=== PATIENT | male | born 2000 | race African-American/Black ===

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

== ENCOUNTER 2019-02-24 22:04 | Emergency (ER) | payer SELFPAY ==
[~2019-02-24] VITALS: Ht 172.7 cm; Wt 56.7 kg
[~2019-02-24 22:04] MED LIST: DOCO2CRE TP
[2019-02-24] MEDS ORDERED: ONDANSETRON PF 4 MG/2 ML VIAL. IVP ONE (22:45)
[2019-02-24] MEDS ORDERED: MORPHINE SULFATE 4 MG/ML VIAL. IV ONE (22:45)
[2019-02-24] MEDS ORDERED: IV NORMAL SALINE 1000ML BAG 1,000 ML IV ONE (22:45)
[2019-02-24 23:12] LABS: CALCIUM 9.4 mg/dL (8.5-10.1); CREATININE 0.9 mg/dL (0.7-1.3); GFR 131.5; POTASSIUM 3.8 mmol/L (3.5-5.1)
[2019-02-24 23:18] LABS: ALBUMIN 4.1 g/dL (3.4-5.0); ALBUMIN/GLOBULIN RATIO 0.9 (1.0-1.7); TOTAL BILIRUBIN 0.3 mg/dL (0.2-1.0); TOTAL PROTEIN 8.5 g/dL (6.4-8.2)
[2019-02-24] MEDS ORDERED: CONTRAST GIVEN. MC PRN (23:45)
[2019-02-24] MEDS ORDERED: IOHEXOL 300 MG/ML 100ML VIAL. IV ONE (23:45)
--- NOTE | 2019-02-24 23:52 | RAD ---
EXAM: CT ABDOMEN/PELVIS WITH CONTRAST. HISTORY: Abdominal pain. TECHNIQUE: Computed tomography of the abdomen and pelvis was performed after the intravenous administration of iodinated contrast. COMPARISON: None. FINDINGS: Lung windows through the visualized portions of the bases reveal bronchial wall thickening and mild bronchiectasis medially in the left lower lobe. There is associated segmental air trapping. No abnormal feeding artery is occluded in this [id number] to indicate a sequestration. Bone windows reveal no suspicious lesions. The liver, gallbladder, spleen, adrenal glands, kidneys and pancreas are unremarkable. There are no pathologically enlarged lymph nodes. The left colon is decompressed but there is suggestion of wall thickening distally. There is no small bowel obstruction. There is no evidence of appendicitis. IMPRESSION: 1. The distal colon is decompressed but there is suggestion of wall thickening. Correlate to exclude distal colitis. 2. Bronchiectasis and wall thickening medially in the left lower lobe. No clear sequestration is identified in this [id number]. This may sequela of multiple prior infections. Correlate for a known diagnosis. *One or more of the following individualized dose reduction techniques were utilized for this examination: 1. Automated exposure control. 2. Adjustment of the mA and/or kV according to patient size. 3. Use of iterative reconstruction technique. Electronically signed by: Christiano Slater MD (02/24/2019 11:49 PM) [id number]
[2019-02-25 00:52] LABS: BASO % 0 % (0-3); EOS % 0 % (0-3); HEMATOCRIT 43.8 % (39.0-53.0); LYMPH # 0.8 x10^3/uL (1.0-4.8); LYMPH % 11 % (24-48); MEAN CORPUSCULAR HEMOGLOBIN 31 pg (25-35); MEAN CORPUSCULAR HGB CONC 34 g/dL (31-37); MEAN CORPUSCULAR VOLUME 91 fL (79-100); MONO # 0.5 x10^3/uL (0.0-1.1); MONO % 6 % (0-9); NEUT # 6.3 x10^3/uL (1.8-7.7); NEUT % 83 % (31-73); PLATELET COUNT 193 x10^3/uL (140-400); RED BLOOD COUNT 4.81 x10^6/uL (4.30-5.70); WHITE BLOOD COUNT 7.6 x10^3/uL (4.0-11.0)
[2019-02-25] MEDS ORDERED: CIPR500T94 PO (01:09)
[2019-02-25] MEDS ORDERED: ONDA4TAB7 PO (01:09)
[2019-02-25] MEDS ORDERED: METR500T PO (01:09)
[2019-02-25] MEDS ORDERED: DICY20TA3 PO (01:09)
--- NOTE | 2019-02-25 01:09 | PHYS DOC ---
Past Medical History Past Medical History: No Pertinent History (CHRISTINA BAILON APRN) Past Surgical History: No Surgical History (CHRISTINA BAILON APRN) Alcohol Use: Occasionally Drug Use: None (CHRISTINA BAILON APRN) Attending Signature I have participated in the care of this patient and I have reviewed and agree with all pertinent clinical information above including history, exam, and recommendations. (MIKAL BABB MD) Adult General Chief Complaint Chief Complaint: ABDOMINAL PAIN HPI HPI Patient is a 18 year old male with no significant medical history who presents to the ED today complaining of generalized abdominal pain rated at 8 out of 10 described as sharp and intermittent that has been going on for 3 days with nausea vomiting and diarrhea. Denies any hematemesis or melena. Denies any escalating or relieving factors. (CHRISTINA BAILON APRN) Review of Systems Review of Systems Constitutional: Denies fever or chills [] Eyes: Denies change in visual acuity, redness, or eye pain [] HENT: Denies nasal congestion or sore throat [] Respiratory: Denies cough or shortness of breath [] Cardiovascular: No additional information not addressed in HPI [] GI: Reports generalized abdominal pain with nausea vomiting and diarrhea : Denies dysuria or hematuria [] Musculoskeletal: Denies back pain or joint pain [] Integument: Denies rash or skin lesions [] Neurologic: Denies headache, focal weakness or sensory changes [] All other systems were reviewed and found to be within normal limits, except as documented in this note. (CHRISTINA BAILON APRN) Current Medications Current Medications Current Medications Medications (Trade) Dose Ordered Sig/Nafisa Start Time Stop Time Status Last Admin Dose Admin Info (CONTRAST GIVEN -- Rx MONITORING) 1 each PRN DAILY PRN 02/24/19 23:45 02/26/19 23:44 Iohexol (Omnipaque 300 Mg/ml) 75 ml 1X ONCE 02/24/19 23:45 02/24/19 23:46 DC 02/24/19 23:40 75 ML Morphine Sulfate (Morphine Sulfate) 4 mg 1X ONCE 02/24/19 22:45 02/24/19 22:46 DC 02/24/19 22:55 4 MG Ondansetron HCl (Zofran) 4 mg 1X ONCE 02/24/19 22:45 02/24/19 22:46 DC 02/24/19 22:55 4 MG Sodium Chloride 1,000 ml @ 1,000 mls/hr 1X ONCE 02/24/19 22:45 02/24/19 23:44 DC 02/24/19 22:55 1,000 MLS/HR (MIKAL BABB MD) Allergies Allergies Allergies Coded Allergies Type Severity Reaction Last Updated Verified No Known Drug Allergies 05/24/18 No (MIKAL BABB MD) Physical Exam Physical Exam Constitutional: Well developed, well nourished, no acute distress, non-toxic appearance. [] HENT: Normocephalic, atraumatic, bilateral external ears normal, oropharynx moist, no oral exudates, nose normal. [] Eyes: PERRLA, EOMI, conjunctiva normal, no discharge. [] Neck: Normal range of motion, no tenderness, supple, no stridor. [] Cardiovascular:Heart rate regular rhythm, no murmur [] Lungs & Thorax: Bilateral breath sounds clear to auscultation [] Abdomen: Bowel sounds normal, soft, no tenderness, no masses, no pulsatile masses. [] Skin: Warm, dry, no erythema, no rash. [] Back: No tenderness, no CVA tenderness. [] Extremities: No tenderness, no cyanosis, no clubbing, ROM intact, no edema. [] Neurologic: Alert and oriented X 3, normal motor function, normal sensory function, no focal deficits noted. [] Psychologic: Affect normal, judgement normal, mood normal. [] (CHRISTINA BAILON APRN) Current Patient Data Vital Signs Vital Signs Date Time Temp Pulse Resp B/P (MAP) Pulse Ox O2 Delivery O2 Flow Rate FiO2 02/25/19 00:05 70 16 119/66 (83) 96 Room Air 02/24/19 22:12 98.4 98.4 (MIKAL BABB MD) Lab Values Laboratory Tests Test 02/24/19 00:46 02/24/19 22:50 White Blood Count 7.6 x10^3/uL (4.0-11.0) Red Blood Count 4.81 x10^6/uL (4.30-5.70) Hemoglobin 15.0 g/dL (13.0-17.5) Hematocrit 43.8 % (39.0-53.0) Mean Corpuscular Volume 91 fL (79-100) Mean Corpuscular Hemoglobin 31 pg (25-35) Mean Corpuscular Hemoglobin Concent 34 g/dL (31-37) Red Cell Distribution Width 14.0 % (11.5-14.5) Platelet Count 193 x10^3/uL (140-400) Neutrophils (%) (Auto) 83 % (31-73) H Lymphocytes (%) (Auto) 11 % (24-48) L Monocytes (%) (Auto) 6 % (0-9) Eosinophils (%) (Auto) 0 % (0-3) Basophils (%) (Auto) 0 % (0-3) Neutrophils # (Auto) 6.3 x10^3/uL (1.8-7.7) Lymphocytes # (Auto) 0.8 x10^3/uL (1.0-4.8) L Monocytes # (Auto) 0.5 x10^3/uL (0.0-1.1) Eosinophils # (Auto) 0.0 x10^3/uL (0.0-0.7) Basophils # (Auto) 0.0 x10^3/uL (0.0-0.2) Sodium Level 140 mmol/L (136-145) Potassium Level 3.8 mmol/L (3.5-5.1) Chloride Level 104 mmol/L (98-107) Carbon Dioxide Level 28 mmol/L (21-32) Anion Gap 8 (6-14) Blood Urea Nitrogen 18 mg/dL (8-26) Creatinine 0.9 mg/dL (0.7-1.3) Estimated GFR (Cockcroft-Gault) 131.5 BUN/Creatinine Ratio 20 (6-20) Glucose Level 100 mg/dL (70-99) H Calcium Level 9.4 mg/dL (8.5-10.1) Total Bilirubin 0.3 mg/dL (0.2-1.0) Aspartate Amino Transferase (AST) 41 U/L (15-37) H Alanine Aminotransferase (ALT) 18 U/L (16-63) Alkaline Phosphatase 99 U/L (46-116) Total Protein 8.5 g/dL (6.4-8.2) H Albumin 4.1 g/dL (3.4-5.0) Albumin/Globulin Ratio 0.9 (1.0-1.7) L Lipase 51 U/L (73-393) L Ethyl Alcohol Level < 10 mg/dL (0-10) Laboratory Tests 02/24/19 00:46 Laboratory Tests 02/24/19 22:50 (MIKAL BABB MD) EKG EKG [] (CHRISTINA BAILON APRN) Radiology/Procedures Radiology/Procedures []PROCEDURE: CT ABD PELV W/ IV CONTRST ONLY EXAM: CT ABDOMEN/PELVIS WITH CONTRAST. HISTORY: Abdominal pain. TECHNIQUE: Computed tomography of the abdomen and pelvis was performed after the intravenous administration of iodinated contrast. COMPARISON: None. FINDINGS: Lung windows through the visualized portions of the bases reveal bronchial wall thickening and mild bronchiectasis medially in the left lower lobe. There is associated segmental air trapping. No abnormal feeding artery is occluded in this [id number] to indicate a sequestration. Bone windows reveal no suspicious lesions. The liver, gallbladder, spleen, adrenal glands, kidneys and pancreas are unremarkable. There are no pathologically enlarged lymph nodes. The left colon is decompressed but there is suggestion of wall thickening distally. There is no small bowel obstruction. There is no evidence of appendicitis. IMPRESSION: 1. The distal colon is decompressed but there is suggestion of wall thickening. Correlate to exclude distal colitis. 2. Bronchiectasis and wall thickening medially in the left lower lobe. No clear sequestration is identified in this [id number]. This may sequela of multiple prior infections. Correlate for a known diagnosis. *One or more of the following individualized dose reduction techniques were utilized for this examination: 1. Automated exposure control. 2. Adjustment of the mA and/or kV according to patient size. 3. Use of iterative reconstruction technique. Electronically signed by: Christiano Slater MD (02/24/2019 11:49 PM) [facility] DICTATED and SIGNED BY: HOMERO SLATER MD DATE: 02/24/19 1440 (CHRISTINA BAILON APRN) Course & Med Decision Making Course & Med Decision Making Pertinent Labs and Imaging studies reviewed. (See chart for details) This is a 18-year-old male patient who presents to the ED today with generalized abdominal pain, nausea vomiting and diarrhea for 3 days CBC within normal WBC, normal hemoglobin and hematocrit, CMP with no acute findings. . CT of the abdomen and pelvic was noted for colitis. Discharge with Cipro and Flagyl, Zofran and dicyclomine. Follow-up with GI in 1- 2 weeks as needed. (CHRISTINA BAILON APRN) Travon Disclaimer Dragon Disclaimer This electronic medical record was generated, in whole or in part, using a voice recognition dictation system. (CHRISTINA BAILON APRN) Departure Departure Impression: Primary Impression: Colitis Disposition: HOME, SELF-CARE Condition: STABLE Referrals: NO PCP (PCP) IVANA CASTELLON MD follow up in one week Patient Instructions: Colitis Additional Instructions: You were evaluated in the emergency room and noted to have colitis, we put you on antibiotics, ensure you complete them. Push fluids, maintain good hand hygiene. Follow-up with the provided specialist in 1-2 weeks. Scripts Dicyclomine Hcl (DICYCLOMINE HCL) 20 Mg Tablet 1 TAB PO TID, #20 TAB 1 Refill Prov: CHRISTINA BAILON APRN 02/25/19 Metronidazole (FLAGYL) 500 Mg Tablet 500 MG PO TID, #21 TAB Prov: CHRISTINA BAILON APRN 02/25/19 Ondansetron Hcl (ZOFRAN) 4 Mg Tablet 1 TAB PO Q6HRS, #20 TAB Prov: CHRISTINA BAILON APRN 02/25/19 Ciprofloxacin Hcl (CIPRO) 500 Mg Tablet 1 TAB PO BID, #14 TAB Prov: CHRISTINA BAILON APRN 02/25/19 CHRISTINA BAILON APRN Feb 25, 2019 01:09 MIKAL BABB MD Feb 25, 2019 04:08
[2019-02-25 01:30] VITALS: BP 118/65
[2019-02-25] MEDS ORDERED: IOHEXOL 300 MG/ML 100ML VIAL. ONE (04:57)
== END 2019-02-25 01:30 | disposition home or self-care (01) ==
LOC: ER 22:04
DX: K52.9 Noninfective gastroenteritis and colitis, unspecified (principal)
CPT/HCPCS: 36415; 74177; 80053; 83690; 85025; 96361; 96374; 96375; 99285; G0480; J2270; J2405; J7030; Q9967